=== PATIENT | male | born 1970 | race Caucasian/White ===

== ENCOUNTER 2020-01-25 09:34 | Outpatient (REF) | payer BC, SELFPAY ==
[2020-01-29 00:13] LABS: SARS-CoV-2 RNA Undetected (Undetected); SARS-CoV-2 Specimen Source Nasopharynx
== END 2020-01-25 09:54 ==
LOC: NCHCN 09:34
PROVIDERS: PCP Family Medicine; Visit Provider Nurse Practitioner Family
DX: Z20.828 Contact with and (suspected) exposure to other viral communicable diseases (principal); R50.9 Fever, unspecified
CPT/HCPCS: U0003

== ENCOUNTER 2020-12-30 11:29 | Outpatient (REF) | payer BC, SELFPAY ==
[2020-12-30 15:22] LABS: BUN 17 mg/dL (7-18); CREATININE 0.9 mg/dL (0.70-1.30); Calcium 9.6 mg/dL (8.5-10.1); Calculated LDL 181 mg/dL (<100); Chloride 104 mmol/L (98-107); Cholesterol 261 mg/dL (<200); Glucose 97 mg/dL (74-106); HDL Cholesterol 48 mg/dL (40-60); Potassium 4.3 mmol/L (3.5-5.1); Sodium 137 mmol/L (136-145); Triglyceride 163 mg/dL (<150)
== END 2020-12-30 11:30 | disposition home or self-care (01) ==
LOC: NCHCN 11:29
PROVIDERS: PCP Family Medicine; Visit Provider Physician Assistant
DX: Z00.00 Encounter for general adult medical examination without abnormal findings (principal); Z13.220 Encounter for screening for lipoid disorders; Z13.228 Encounter for screening for other metabolic disorders
CPT/HCPCS: 80048; 80061

== ENCOUNTER 2022-10-24 12:29 | Outpatient (REF) | payer BC, SELFPAY | END 2022-10-24 12:30 | disposition home or self-care (01) | LOC: LBN 12:29 | PROVIDERS: PCP Family Medicine; Visit Provider Physician Assistant Medical | DX: R39.15 Urgency of urination (principal) | CPT/HCPCS: 87086 ==

== ENCOUNTER 2022-11-01 13:48 | Outpatient (REF) | payer BC, SELFPAY ==
[2022-11-01 18:13] LABS: Abs Immature Grans 0.01 10^3/uL (0.0-0.06); Absolute Basophil Count 0.06 10^3/uL (0.0-0.2); Absolute Eosinophil Count 0.18 10^3/uL (0.0-0.7); Absolute Lymphocyte Count 2.32 10^3/uL (1.2-3.4); Absolute Monocyte Count 0.43 10^3/uL (0.1-0.8); Absolute Neutrophil Count 3.57 10^3/uL (1.2-6.7); Basophils % 0.9; Eosinophils % 2.7; HCT 41.4 % (40.0-50.0); HGB 14.1 g/dL (13.5-17.5); Immature Grans % 0.2; Lymphocytes % 35.3; MCH 30.6 pg (27.0-33.0); MCHC 34.1 % (32.0-36.0); MCV 90 fL (80-95); MPV 12.6 fL (8.0-11.0); Monocytes % 6.5; Neutrophils % 54.4; Platelet Count 171 10^3/uL (130-400); RBC 4.61 10^6/uL (4.36-5.78); RDW-SD 39.3 fL; WBC 6.57 10^3/uL (4.4-10.8)
[2022-11-01 18:34] LABS: ALT 45 U/L (16-63); AST 21 U/L (15-37); Albumin 4.3 g/dL (3.4-5.0); Alkaline Phosphatase 79 U/L (46-116); BUN 16 mg/dL (7-18); Bilirubin, Total 0.2 mg/dL (0.2-1.0); Calcium 9.5 mg/dL (8.5-10.1); Chloride 104 mmol/L (98-107); Cholesterol 296 mg/dL (<200); Estimated GFR 91.69 (mL/min/1.73m2); Glucose 123 mg/dL (74-106); HDL Cholesterol 45 mg/dL (40-60); Potassium 3.9 mmol/L (3.5-5.1); Sodium 143 mmol/L (136-145); Total Protein 7.5 g/dL (6.4-8.2); Triglyceride 586 mg/dL (<150); Troponin I < 50 ng/L (<or=60)
[2022-11-01 18:38] LABS: INR 0.9 (0.9-1.1); Prothrombin Time 8.9 sec (9.3-11.0)
[2022-11-01 18:52] LABS: LDL CHOLESTEROL 156 mg/dL (<100)
[2022-11-01 19:03] LABS: Creatine Kinase 113 U/L (39-308)
[2022-11-02 20:45] LABS: PSA, Screening 0.4 ng/mL (<=3.5)
== END 2022-11-01 13:49 | disposition home or self-care (01) ==
LOC: NCHCN 13:48
PROVIDERS: PCP Family Medicine; Visit Provider Nurse Practitioner Family
DX: R07.89 Other chest pain (principal); Z12.5 Encounter for screening for malignant neoplasm of prostate; R39.12 Poor urinary stream
CPT/HCPCS: 80053; 80061; 82550; 83721; 84153; 84484; 85025; 85610

== ENCOUNTER 2023-01-15 01:35 | Outpatient (CLI) | payer BC, SELFPAY ==
--- NOTE | 2023-01-15 13:45 | DI.US_ITS ---
APPROVED REPORT EXAM: Stress Echocardiogram Stress Nurse: Tammi Isaacs RN Ordering Provider: ISIDRA EVANS, Contact Number: [phone] HR: 90 bpm BP: 120/80 mmHg Rhythm: NSR, baseline resting ST abnormalities, abnormal R wave progression ICD: R07.89, dull chest pain, HTN I10 Indications: Chest pain and HTN Medical History Medical History: HTN, HLD Medications: Lisinopril Allergies: amoxicillin Cardiac Risk Factors: +family history, HLD, HTN Previous Cardiac Procedures: None Pretest Chest Pain Characteristics: 4/10 left sided chest pressure, patient report this as baseline Exercise History: Physically active Physical Disabilities: None Stress Test Details Test: Exercise stress testing was performed using a Nasir protocol. Rest Stress HR Resting HR Supine: 90 bpm Max Heart Rate (APMHR): 169 bpm Resting HR Standin bpm Target HR (85% APMHR): 144 bpm Max HR Achieved: 167 bpm % of APMHR: 99 Recovery HR: 107 bpm HR response to stress: Normal HR response to stress BP Resting BP Supine: 120/80 mmHg Resting BP Standin/82 mmHg Max BP: 162/80 mmHg Recovery BP: 126/88 mmHg BP response to stress: Normal blood pressure response to stress. ECG Resting ECG: Sinus Rhythm, baseline ST abnormalites, abnormal R wave progression Ectopy: None Stress ECG: Sinus Tachycardia ST Change: Nondiagnostic resting ST abnormalities Arrhythmia: None Comment: Increase in resting ST abnormalites during stress Recovery ECG: Sinus Rhythm Recovery ST Change: Nondiagnostic resting ST abnormalities Recovery Arrhythmia: None Comment: ST abnormalities returned to resting baseline Clinical Reason for Termination: Target HR achieved, R wave progression abnormalities causing difficulties jaquelin ding ECG tracing Stress Symptoms: Patient reported baseline chest pain 4-5/10. Did not change during or after test. Exercise duration: 7 min24 sec Highest Stage Reached: Stage 3: 3.4 mph at 14% grade. Exercise capacity: 9.2 METs Angina Score: Non-Limiting Coleman Treadmill Score: 2.3 Rate Pressure Product: 15019 Stress ECG Conclusion 1. Resting electrocardiogram showed left ventricular hypertrophy with repolarization abnormalities 2. Patient exercised on Nasir protocol and completed a workload of 9.2 METS 3. Normal heart rate and blood pressure response to exercise. The patient achieved 99% of predicted heart rate for age 4. The electrocardiographic portion of the test did not demonstrate any myocardial ischemia 5. There were no significant dysrhythmias 6. There was no echocardiographic evidence of myocardial ischemia. All phelps demonstrated increased contractility with improved overall ejection fraction Coleman Treadmill Score is 2.3 which is Moderate risk. Stress Test Summary STAGE Time (mins) Speed (mph) Grade (%) HR BP SYMPTOMS METS Supine 90 120/80 Chest pressure 4-5/10 Standing 110 122/82 Chest pressure 4-5/10 1 3 1.7 10 128 150/80 Chest pressure 4-5/10 4.6 2 6 2.5 12 148 162/80 Chest pressure 4-5/10 7 3 9 3.4 14 158 10.2 1 min recovery 135 Chest pressure 4-5/10 3 min recovery 115 158/82 Chest pressure 4-5/10 6 min recovery 111 128/80 Chest pressure 4-5/10 9 min recovery 109 126/88 Chest pressure 4-5/10 Echo Findings The Pre-Stress Echocardiogram showed normal left ventricular contractility with an estimated Ejection Fraction of about 60%. The Peak-Stress Echocardiogram showed normal left ventricular contractility with an estimated Ejectio n Fraction of about 75%. Conclusion Resting electrocardiogram showed left ventricular hypertrophy with repolarization abnormalities Patient exercised on Nasir protocol and completed a workload of 9.2 METS Normal heart rate and blood pressure response to exercise. The patient achieved 99% of predicted hea rt rate for age The electrocardiographic portion of the test did not demonstrate any myocardial ischemia There were no significant dysrhythmias There was no echocardiographic evidence of myocardial ischemia. All phelps demonstrated increased con tractility with improved overall ejection fraction Plain Coleman Treadmill Score is 2.3 which is Moderate risk.
== END 2023-01-15 01:55 ==
LOC: DI 01:35
PROVIDERS: PCP Family Medicine; Visit Provider Nurse Practitioner Family
DX: R07.89 Other chest pain (principal); I10 Essential (primary) hypertension
CPT/HCPCS: 93350; 93017

== ENCOUNTER 2025-03-22 15:24 | Outpatient (CLI) | payer BC, SELFPAY ==
--- NOTE | 2025-03-22 15:53 | DI.RAD_ITS ---
Exam(s) XR LUMBAR SPINE COMPLETE EXAM: XR LUMBAR SPINE COMPLETE CLINICAL HISTORY: M54.50 Low back pain, unspecified. TECHNIQUE: 2D digital imaging was performed. Five views. COMPARISON: No exams were available for comparison FINDINGS: BONES: No fracture or destructive lesion. Vertebral body heights are maintained. Mild facet hypert rophy identified . DISKS: Small endplate osteophytes at T12-L1. Intervertebral disc spaces are maintained. ALIGNMENT: Lumbar spinal alignment is within normal limits. SOFT TISSUE: A large quantity of stool noted throughout the colon. IMPRESSION: Unremarkable radiographs of the lumbar spine. A large quantity of stool is noted. DATA REPOSITORY: RADIATION DOSE DELIVERED:
[2025-03-22 21:29] LABS: ESR 13 mm/hr (0-20)
== END 2025-03-22 15:25 | disposition home or self-care (01) ==
LOC: DI 15:24 → LBN 21:02
PROVIDERS: PCP Family Medicine; Visit Provider Nurse Practitioner Family
DX: M54.50 Low back pain, unspecified (principal)
CPT/HCPCS: 85652; 72110

== ENCOUNTER 2025-05-04 12:58 | Outpatient (CLI) | payer BC, SELFPAY ==
--- NOTE | 2025-05-04 | DI.MRI_ITS ---
Exam(s) MR LUMBAR SPINE WO EXAM: MR LUMBAR SPINE WO CLINICAL HISTORY: ACUTE LOW BACK PAIN LATERALITY M54.50. TECHNIQUE: Multiplanar multisequence MRI of the Lumbar spine was performed. COMPARISON: CR XR LUMBAR SPINE COMPLETE from 03/22/2025 FINDINGS: Bones: The last intervertebral disc space is designated the L5/S1 level for the numbering purpose of this examination. The vertebral body heights are well maintained. Alignment: Unremarkable. The marrow signal characteristics are unremarkable. Hemangiomas are noted in the L3 and L5 vertebral bodies. Cord: The conus tip ends at the T12 level. It is of normal size and signal intensity. T12-L1: No focal disc herniation is present. No central spinal canal stenosis.No neural foraminal stenosis. L1-2: No focal disc herniation is present. No central spinal canal stenosis.No neural foraminal stenosis. L2-3: No focal disc herniation is present. No central spinal canal stenosis.No neural foraminal stenosis. L3-4: Mild loss of disc height. Mild concentric disc bulging.No focal disc herniation is present. Mild facet degenerative changes and ligamentous hypertrophy. Mild central spinal canal stenosis.No neural foraminal stenosis. L4-5:Minimal disc bulging. No focal disc herniation is present. There are facet degenerative changes and ligamentous hypertrophy causing moderate central canal stenosis.No neural foraminal stenosis. L5-S1: Disc height is maintained. There is a central disc protrusion with superior extrusion of disc material posterior to the L5 vertebral body. The herniated disc material measures in 13 transverse by 5.5 AP by 19 mm cephalo caudad. There are facet degenerative changes and ligamentous hypertrophy. The findings combine to produce severe central canal stenosis. No neural foraminal stenosis. The visualized SI joints and sacrum are unremarkable. Soft tissues: The paraspinal soft tissues are unremarkable. IMPRESSION: Large central disc extrusion at L5-S1 causing severe central canal stenosis. Moderate central canal stenosis at L4-5 and mild central canal stenosis at L3-4 secondary to combination of degenerative changes. DATA REPOSITORY:
== END 2025-05-04 13:18 ==
LOC: DI 12:58
PROVIDERS: PCP Family Medicine; Visit Provider Physician Assistant Medical
DX: M48.061 Spinal stenosis, lumbar region without neurogenic claudication (principal)
CPT/HCPCS: 72148

== ENCOUNTER 2025-05-17 15:42 | Outpatient (REF) | payer BC, SELFPAY ==
[2025-05-17 17:11] LABS: Hemoglobin A1C 5.4 % (<5.7)
== END 2025-05-17 15:43 | disposition home or self-care (01) ==
LOC: NCHCN 15:42
PROVIDERS: PCP Family Medicine; Visit Provider Student in an Organized Health Care Education/Training Program
DX: Z13.1 Encounter for screening for diabetes mellitus (principal)
CPT/HCPCS: 83036

== ENCOUNTER 2025-10-26 12:16 | Emergency (ER) | payer BC, SELFPAY ==
[2025-10-26 12:20] VITALS: BP 129/88; PULSE 96; RESP 20; TEMP 36.9; O2SAT 96
--- NOTE | 2025-10-26 12:23 | W.ED.GENAD ---
Discharge Plan Disposition Patient Disposition: Home Discharge Details Clinical Impression: Acute pain of left wrist Primary Care Provider: Lucia Jones V ED Provider: Pranay Mccray Home Meds and New Rx's Prescriptions: Continued multivitamin Tablet 1 tab PO DAILY lisinopril 5 mg tablet 5 mg PO DAILY Patient Comments: pt unsure of dosage. states he just started med. tamsulosin [Flomax] 0.4 mg capsule 0.4 mg PO DAILY Qty: 90 3RF rosuvastatin 10 mg tablet 10 mg PO DAILY Patient Comments: TAKE ONE TABLET BY MOUTH EVERY DAY Discharge Instructions Additional Instructions: You are seen in the emergency department for your wrist pain. Your x-ray is concerning for the possibility of an injury to one of the ligaments causing a wrist sprain. Please wear this removable Velcro wrist splint. Please follow-up with orthopedics in the next 1 to 2 weeks. Please return to the emergency department if you develop any worsening pain nausea vomiting does not stop or if your hand turns blue. For your pain please take medications as follows: 1. Take acetaminophen (Tylenol), 1,000 mg (two 500 mg tabs) every 6 hours [2. Take ibuprofen (Advil), 400 mg every 6 hours.] Referrals: [facility] [Provider Group] HPI <Pranay Mccray MD - Last Filed: 10/26/25 16:20> General Date/Time Provider Initiated Documentation: 10/26/25 12:23. HPI Narrative: [facility] Primary survey intact. Reassuring shock index. GCS 15. On secondary survey patient has left wrist and hand pain concerning for fracture versus sprain. Will obtain x-ray. No significant erythema to suggest cellulitis.No fluctuance to suggest abscess. No fevers to suggest septic joint. No head strike to suggest benefit from CT head. No vomiting to suggest intracranial injury. No shortness of breath nor chest trauma nor hypoxia so do not feel patient requires a chest x-ray. Will reassess following x-ray. No snuffbox tenderness to suggest scaphoid fracture. No laxity on ulnar deviation of thumb to suggest gamekeeper's thumb. Patient had prehospital acetaminophen so we will treat with ibuprofen. 1:10 PM Radiology questioned triquetral fracture. Will review films with orthopedics. 1:29 PM I was in touch with Dr. Gauthier who reviewed the patient's radiographs. He advised removable Velcro wrist brace. Will ask health coordinator Pilar to have the patient follow-up in the orthopedic clinic in the next week. HPI The patient presents for evaluation of left wrist pain. He is right-handed and sustained an injury to his left wrist approximately 1 hour ago due to a fall on ice while walking his dog. The pain is primarily localized in the wrist and hand, with some discomfort extending up to the elbow. He reports no head or chest trauma from the incident. Additionally, he is not experiencing any respiratory distress. Exam General: Well-appearing in no acute distress speaking in complete sentences. Head: Normocephalic, atraumatic. Eye: Extraocular eye movements intact. No conjunctival injection. No scleral icterus. Ear, nose, mouth, throat: Grossly normal inspection. Normal voice, handling secretions normally. Neck: Trachea midline. Cardiovascular: Well-perfused distal extremities. Respiratory: Nonlabored respiration. Gastrointestinal: Nondistended abdomen. Musculoskeletal: Left upper extremity no obvious deformities. 2+ left radial pulse. Patient does have left wrist tenderness on the radial aspect. He has no snuffbox tenderness but he does have tenderness throughout his metacarpals. No laxity on ulnar stress testing of thumb. Patient has difficulty ranging his secondary to pain in proximal hand and wrist. Skin: Normal for age and race, grossly normal temperature and turgor. No acute rash. Neurologic: Alert and appropriate, no apparent acute deficits. Related Data Home Medications ?Medication ?Instructions ?Recorded ?Confirmed lisinopril 5 mg tablet 5 mg PO DAILY 02/07/23 10/26/25 multivitamin 1 tab PO DAILY 02/07/23 10/26/25 tamsulosin 0.4 mg capsule (Flomax) 0.4 mg PO DAILY #90 caps 11/09/24 10/26/25 rosuvastatin 10 mg tablet 10 mg PO DAILY 10/26/25 10/26/25 Previous Rx's ?Medication ?Instructions ?Recorded tamsulosin 0.4 mg capsule (Flomax) 0.4 mg PO DAILY #90 caps 11/09/24 Allergies Allergy/AdvReac Type Severity Reaction Status Date / Time amoxicillin Allergy Intermediate Anaphylaxis Verified 10/26/25 12:23 General Stated Complaint: Orthopedic LAXMI: 4 Course <Pranay Mccray MD - Last Filed: 10/26/25 16:20> Vital Signs Vital signs: Vital Signs Temperature 36.9 C 10/26/25 12:20 Pulse 96 H 10/26/25 12:20 Respiratory Rate 20 10/26/25 12:20 Blood Pressure 129/88 10/26/25 12:20 Pulse Oximetry 96 10/26/25 12:20 Temperature 36.9 C 10/26/25 12:20 Pulse 96 H 10/26/25 12:20 Respiratory Rate 20 10/26/25 12:20 Blood Pressure 129/88 10/26/25 12:20 Blood Pressure Position Sitting 10/26/25 12:20 Pulse Oximetry 96 10/26/25 12:20 Oxygen Delivery Method Room Air 10/26/25 12:20 Oxygen Flow Rate 0 10/26/25 12:20 PFSH <Pranay Mccray MD - Last Filed: 10/26/25 16:20> All Active Problems (Updated 10/26/25 @ 13:31 by Pranay Mccray MD) Acute pain of left wrist (Acute) Erectile dysfunction (Acute) BPH w urinary obs/LUTS (Acute) Elevated erythrocyte sedimentation rate (Acute) Chest pain (Acute) Acid reflux (Chronic) Anxiety (Chronic) Infected wound (Acute) Urinary urgency (Acute) Elevated blood pressure reading (Acute) Urinary frequency (Acute) Social History Smoking risk assessment performed?: No Do you feel safe in your relationship?: Yes PAWSS <Pranay Mccray MD - Last Filed: 10/26/25 16:20> Have you Been Recently Intoxicated or Drunk Within the Last 30 days?: No Have you Ever Experienced Previous Episodes of Alcohol Withdrawal?: No Have you ever Experienced Withdrawal Seizures?: No Have you ever Experienced Delirium Tremens(DT)s?: No Have you ever undergone Alcohol Rehabilitation Treatment (i.e, inpt ot outpatient treatment programs)?: No Have you ever Experienced Blackouts?: No Have you ever Combined Alcohol with other Downers within the last 90 days?: No Have you ever Combined Alcohol with any other Substance of Abuse during the last 90 days?: No Positive Blood Alcohol level on Presentation? [PCS.BAL]: No Evidence of Increased Autonomic Activity (i.e. HR>120, tremor, sweating, agitation, nausea)?: No Result: 0 <TIMOTHY Hoff - Last Filed: 10/26/25 12:59> Result: 0
--- NOTE | 2025-10-26 12:30 | DI.RAD_ITS ---
Exam(s) XR WRIST LT COMPLETE EXAM: XR WRIST LT COMPLETE CLINICAL HISTORY: Left wrist painful. TECHNIQUE: 2D digital imaging was performed. COMPARISON: No exams were available for comparison FINDINGS: 3 views On the lateral view there is a subtle suggestion of a nondisplaced fracture of the dorsal aspect of what is probably triquetrum bone. Scaphoid appears intact and scapholunate distance unremarkable. There is no significant ulnar variance. IMPRESSION: Nondisplaced fracture on the dorsal aspect of the triquetrum DATA REPOSITORY: RADIATION DOSE DELIVERED:
--- NOTE | 2025-10-26 12:30 | DI.RAD_ITS ---
Exam(s) XR HAND LT COMPLETE EXAM: XR HAND LT COMPLETE CLINICAL HISTORY: Left hand pain. TECHNIQUE: 2D digital imaging was performed. COMPARISON: No exams were available for comparison FINDINGS: 3 views No evidence of fracture or dislocations in the hand. Bone density normal. No osseous lesions nor erosions. No radiopaque foreign bodies. IMPRESSION: No acute osseous findings in the hand. See wrist report for positive findings. DATA REPOSITORY: RADIATION DOSE DELIVERED:
[2025-10-26] MEDS: Ibuprofen 600 MG TAB PO (12:35)
== END 2025-10-26 13:49 | disposition home or self-care (01) ==
PROVIDERS: Emergency Provider Emergency Medicine; PCP Family Medicine
DX: M25.532 Pain in left wrist (principal)
CPT/HCPCS: 99283 ×2; 73110; 73130